=== PATIENT | male | born 1995 | race African-American/Black ===

== ENCOUNTER 2016-10-02 11:58 | Emergency (ER) | payer OTHER, MEDICAID ==
[~2016-10-02] VITALS: Ht 177.8 cm; Wt 75.0 kg
[~2016-10-02 11:58] MED LIST: DIVA500T3; FLUO40CA8; QUET200T
[2016-10-02 12:01] VITALS: BP 127/86
[2016-10-02] MEDS ORDERED: TETANUS, DIPHTHERIA, PERTUSSIS VAC/PF 0.5ML (>7YR OLD) IM ONE (16:15)
[2016-10-02] MEDS ORDERED: LIDOCAINE HCL 1% 20ML VIAL (Pyxis) INJ INFIL ONE (16:15)
== END 2016-10-02 17:28 | disposition home or self-care (01) ==
LOC: ER 12:13
DX: S01.81XA Laceration without foreign body of other part of head, initial encounter (principal); Y08.89XA Assault by other specified means, initial encounter; Y93.89 Activity, other specified; Y92.89 Other specified places as the place of occurrence of the external cause; Y99.8 Other external cause status
CPT/HCPCS: 12011; 90471; 90715; 99283; J3490; X7700; Z7610

== ENCOUNTER 2017-09-24 22:39 | Emergency (ER) | payer OTHER, MEDICAID ==
[~2017-09-24] VITALS: Ht 177.8 cm; Wt 68.0 kg
[2017-09-24] MEDS ORDERED: SODIUM CHLORIDE 0.9% 1,000 ML IV ONE (23:03)
[2017-09-24] MEDS ORDERED: LORAZEPAM 2MG/ML CPJ IV ONE (23:15)
[2017-09-24] MEDS ORDERED: HALOPERIDOL LACTATE 5MG/ML VIAL IM ONE (23:15)
[2017-09-24] MEDS ORDERED: THIAMINE HCL 100 MG/1 ML 2ML VIAL IV ONE (23:15)
[2017-09-24 23:18] LABS: BASOPHILS % 0.7 % (0.0-2.0); EOSINOPHILS % 0.2 % (0.0-5.0); HEMATOCRIT. 39.7 % (42.0-52.0); HEMOGLOBIN. 12.8 g/dL (14.0-18.0); LYMPHOCYTES % 28.7 % (20.0-50.0); MEAN PLATELET VOLUME 8.4 fl (7.4-10.4); MONOCYTES % 5.6 % (2.0-8.0); NEUTROPHILS % 64.8 % (40.0-76.0); PLATELET 204 x1000/uL (130-400); RED CELL DISTRIBUTION WIDTH 16.3 % (11.6-14.6)
[2017-09-24 23:26] LABS: CHLORIDE 109 mEq/L (98-107); INR 1.2
[2017-09-24 23:30] LABS: ETHANOL BLOOD < 10 mg/dL
[2017-09-24 23:49] LABS: PLATELET ESTIMATE NORMAL
[2017-09-25 00:33] LABS: CLARITY URINE CLEAR (CLEAR); COLOR URINE YELLOW (YELLOW); KETONES URINE NEGATIVE (NEGATIVE); LEUKOCYTE ESTERASE URINE NEGATIVE (NEGATIVE); NITRITE URINE NEGATIVE (NEGATIVE); OCCULT BLOOD URINE NEGATIVE (NEGATIVE); PROTEIN URINE NEGATIVE (NEGATIVE); SPECIFIC GRAVITY URINE 1.031 (1.005-1.030)
[2017-09-25 00:44] LABS: *AMPHETAMINES SCREEN URINE NEGATIVE (NEGATIVE); *BARBITURATES SCREEN URINE NEGATIVE (NEGATIVE); *BENZODIAZEPINES SCREEN URINE NEGATIVE (NEGATIVE); *COCAINE SCREEN URINE NEGATIVE (NEGATIVE); METHADONE URINE SCREEN NEGATIVE (NEGATIVE); OPIATES URINE SCREEN NEGATIVE (NEGATIVE)
[2017-09-25 00:46] LABS: CANNABINOID URINE SCREEN PRESUMTIVE POSITIVE (NEGATIVE); PHENCYCLIDINE URINE SCREEN NEGATIVE (NEGATIVE)
[2017-09-25 04:18] VITALS: BP 103/61
== END 2017-09-25 04:25 | disposition home or self-care (01) ==
LOC: ER 22:39
DX: F91.1 Conduct disorder, childhood-onset type (principal); F12.90 Cannabis use, unspecified, uncomplicated; D50.9 Iron deficiency anemia, unspecified; F43.20 Adjustment disorder, unspecified; F31.9 Bipolar disorder, unspecified
CPT/HCPCS: 36415; 70450; 71045; 80053; 80165; 80305; 80307; 80329; 81003; 85025; 85610; 96372; 96374; 96375; 99285; G0482; J1630; J2060; J3411; J7030; Z7610; 96361